=== PATIENT | female | born 1965 | race Caucasian/White ===

== ENCOUNTER 2019-07-03 11:11 | Emergency (ER) | payer MEDICAID ==
[~2019-07-03] VITALS: Ht 162.6 cm; Wt 77.0 kg
--- NOTE | 2019-07-03 11:24 | NUR ---
awaiting ed provider.
--- NOTE | 2019-07-03 11:58 | NUR ---
SATYA ALFONSO AT BEDSIDE.
[2019-07-03] MEDS ORDERED: famotidine 20mg tablet PO ONE (12:00)
[2019-07-03] MEDS ORDERED: diphenhydrAMINE 25mg capsule PO ONE (12:00)
[2019-07-03] MEDS ORDERED: DIPH25CA83 PO (12:11)
[2019-07-03] MEDS ORDERED: EPIN0.3P3 IM (12:11)
[2019-07-03 12:23] VITALS: BP 116/90
== END 2019-07-03 12:24 | disposition home or self-care (01) ==
LOC: ER 11:13
DX: T78.49XA Other allergy, initial encounter (principal); R22.33 Localized swelling, mass and lump, upper limb, bilateral; Z91.048 Other nonmedicinal substance allergy status; Z79.899 Other long term (current) drug therapy; X58.XXXA Exposure to other specified factors, initial encounter
CPT/HCPCS: 99283; Q0163